=== PATIENT | female | born 1980 | race Caucasian/White ===

== ENCOUNTER → 2018-06-08 11:19 | Outpatient (CLI) | payer OTHER, SELFPAY ==
[2018-06-12 09:50] LABS: HPV Reflexed? NOT INDICATED
== END ==
PROVIDERS: Visit Provider Obstetrics & Gynecology
DX: Z12.4 Encounter for screening for malignant neoplasm of cervix (principal)
CPT/HCPCS: 88175; G0145

== ENCOUNTER → 2018-06-11 14:24 | Outpatient (CLI) | payer OTHER, SELFPAY ==
--- NOTE | 2018-06-11 14:26 | BI_ITS ---
MAMMOGRAPHY - BILATERAL SCREENING REASON FOR EXAM: Female, 38 years old. Routine annual screening examination. PERTINENT HISTORY: Aunt with breast cancer. TECHNIQUE: Digital bilateral breast corinne (3D mammographic acquisition) in the CC and MLO projections. 2-D mediolateral oblique (MLO) and craniocaudad (CC) views of both breasts were obtained. CAD: Full Field Digital Mammography with Computer Added Detection was performed. COMPARISON: None. Baseline examination. FINDINGS: Breast Composition: The breasts are heterogeneously dense, which may obscure small masses. There are no dominant masses or suspicious calcifications. No other significant abnormalities are identified. BI/SCREENING MAMM (CAD), BILAT IMPRESSION: Negative screening mammogram. Yearly followup mammogram recommended. (A) ASSESSMENT CATEGORY: BIRADS Category 1: Negative. A letter regarding these results will be sent to the patient by the facility within 30 days. Approximately 10% of breast cancers are not detected by mammography. A normal mammogram should not delay biopsy of a clinically suspicious abnormality. [id number] Electronically Signed: Remberto Quintana MD at 10:26 EDT Tel [phone], Service support ,
== END ==
PROVIDERS: Visit Provider Obstetrics & Gynecology
DX: Z12.31 Encounter for screening mammogram for malignant neoplasm of breast (principal)
CPT/HCPCS: 77063; 77067

== ENCOUNTER → 2018-08-14 09:01 | Outpatient (CLI) | payer OTHER, SELFPAY ==
[2018-08-14 10:28] LABS: Absolute Lymphocyte Count 0.79 X10^3/ul (0.83-4.51); Absolute Neutrophil Count 1.3 X10^3/uL (2.0-7.7); Basophil# 0.07 X10^3/uL; Basophil% 2.8 % (0-1); Eosinophil# 0.02 X10^3/uL; Eosinophils% 0.8 % (0-5); Hematocrit 39.8 % (37-47); Hemoglobin 13.6 g/dl (12.0-15.0); Lymphocyte # 0.79 X10^3/ul (4.0); Lymphocyte % 31.9 % (19-41); Mean Corp Hgb Conc 34.2 g/gl (32-36); Mean Corpuscular Hgb 32.4 pg (27.0-32.0); Mean Corpuscular Volume 94.8 fL (81-99); Mean Platelet Vol. 10.4 fl (6.2-12.0); Monocyte# 0.34 X10^3/uL; Monocyte% 13.7 % (0-10); Neutrophil # 1.26 X10^3/uL (2.7-7.7); Neutrophil % 50.8 % (47-70); Platelet Count 181 K/mm3 (150-450); RBC Distribution Width CV 13.1 % (11.6-14.6); RBC Distribution Width SD 44.2 fl (35.1-43.9); White Blood Count 2.5 K/mm3 (4.4-11.0)
[2018-08-14 10:29] LABS: POSITIVE COUNT NO; POSITIVE DIFFERENTIAL NO; POSITIVE MORPHOLOGY NO
[2018-08-14 10:57] LABS: Anion Gap 9 (5-15); BUN 11 mg/dL (7-18); BUN/Creat Ratio 12.9 RATIO (10-20); Calcium,Total 8.4 mg/dL (8.5-10.1); Chloride 108 mmol/L (98-107); Creatinine, Serum 0.85 mg/dL (0.55-1.02); EST Glomerular Filtration Rate 78 mL/min (>60); Est Glom Filt Rate - Afr Amer 95 mL/min (>60); Glucose 94 mg/dL (74-106); Potassium 4.3 mmol/L (3.5-5.1); Sodium Level 141 mmol/L (136-145)
== END ==
PROVIDERS: Family Provider Family Medicine; PCP Family Medicine; Visit Provider Family Medicine
DX: Z01.818 Encounter for other preprocedural examination (principal)
CPT/HCPCS: 36415; 80048; 85025

== ENCOUNTER 2018-08-28 05:58 | Day surgery (SDC) | payer OTHER, SELFPAY ==
--- NOTE | 2018-08-28 | BON_PTH ---
PATIENT: DAILY MEDINA [place] [facility] [place][id number] AGE/SX: 38/F ROOM: RE08/28/[address]: Dr. Ramiro Yanez DPM : 1980 BED: DIS: 08/28/2018 SPEC #: [id number] RECD: 08/28/18 14:58 STATUS: DIMITRIOS REAnna Marie #: [id number] [place]: 08/28/18 00:[address]: Ramiro Yanez DEPT: SURGICAL PATHOLOGY RECD BY: Kal Chery ENTERED: 08/28/18 15:01 SP TYPE: Bone OTHR DR: Dr. Tesfaye Carr MD Tissues: Bone of foot, NOS Procedures: Decalcification bone/plaque Surgery Specimen Level III HEADER OPERATION: First metatarsophalangeal joint cheilectomy/arthroplasty PRE-OP DIAGNOSIS: Osteoarthritis right first MPJ, hallus limitus/rigidus right great toe TISSUE SUBMITTED: Right first metatarsophalangeal joint MICROSCOPIC DIAGNOSIS Right first metatarsophalangeal joint: Pieces of bone with focal degenerative and reactive changes. UZIEL:bereket 09/02/18 MICROSCOPIC DESCRIPTION Slides are reviewed. GROSS DESCRIPTION Received in fixative is one container labeled with the patient's name and designated MP. The specimen consists of three irregular fragments of white-garza bone measuring 1 to 2.2 cm in greatest dimension. The largest fragment is sectioned and totally submitted along with the smaller fragments in two cassettes after decalcification. / AM:bereket 08/28/18 TC:5 CPT: 96059, 31310
[2018-08-28 06:18] VITALS: BP 105/82; PULSE 62; RESP 14; TEMP 37.4; O2SAT 99; BMI 26.6
[2018-08-28 06:21] LABS: Internal QC Validated? YES +Cl - CLEAR BKGD; Pregnancy, Urine Negative Negative
[2018-08-28] MEDS: Cefazolin 2 GM in 0.9% Normal Saline 100 ML IV (07:28)
--- NOTE | 2018-08-28 07:30 | RAD_ITS ---
STUDY: X-RAY RIGHT FOOT, RIGHT TOE REASON FOR EXAM: Female, 38 years old. Arthroplasty. TECHNIQUE: 2 coned-down intraoperative view(s) of the toe were obtained. COMPARISON: None. FINDINGS: 2 views were obtained intraoperatively. RAD/Toe(s) Min 2 Views IMPRESSION: 2 intraoperative views of the first metatarsophalangeal joint. Electronically Signed: Remberto Quintana MD at 12:26 EST Tel [phone], Service support ,
[2018-08-28] MEDS: Bupivacaine Mpf 0.5% 30 ML VIAL (08:23)
--- NOTE | 2018-08-28 08:35 | DCINST_ITS ---
Discharge Diet: Light diet - advance as tolerated Discharge Activity: May Not Drive Weight Bearing Status: No weight bearing - No weight on right foot Keep extremity elevated above heart level: Right Leg - Keep right foot elevated with pillows for at least 50 minutes of every hour Call your doctor if your incision/area has: Continuous Slow Oozing, Sudden Increased Bleeding, Foul Smelling Discharge Call your doctor if you observe: Fever of 101 or Higher, Coldness, Increased Pain, Shortness of breath, Chest pain, Increased palpitations (irregular heartbeat), Calf discomfort, Uncontrolled pain Cleanse incision/area with: Do not get Incision Wet, Keep Dressing Clean & Dry Allergies/Adverse Reactions: Allergies No Known Allergies Allergy (Verified 08/28/18 06:16) Medications to take at Discharge Hydrocodone/Acetaminophen [Vicodin 5-300 mg Tablet] 1 ea PO Q6H PRN PRN 3 Days #30 tab 08/28/18 Rivaroxaban [Xarelto] 10 mg PO DAILY #14 tab 08/28/18 The following prescriptions were given: Hydrocodone/Acetaminophen [Vicodin 5-300 mg Tablet] 1 ea PO Q6H PRN PRN 3 Days #30 tab PRN Reason: Pain Rivaroxaban [Xarelto] 10 mg PO DAILY #14 tab Primary Care Physician: Tesfaye Carr MD [Primary Care Provider] - Test Results: Test results from this visit will be discussed in further detail at your follow- up appointment, if applicable. Please Follow Up With: Ramiro Yanez DPM When: within 1 week, sooner if needed
--- NOTE | 2018-08-28 08:35 | PCM.OPRPT ---
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 Karon Huynh Type of Anesthesia:: General, Local Specimen's removed: Bone from the right 1st MTPJ sent to pathology Estimated Blood Loss (mL): 1mL Description of Procedure: Indications: This is a 38 year old female with painful 1st metatarsal phalagneal joint (MTPJ) due to osteoarthritis w/ hallux limitus/ridigus. Patient has pain and limited range of motion. Osteoarthritis was seen on xrays of the foot. This has been treated with extensive conservative/nonsurgical management, but symptoms persists and she continues to have pain and symptoms. She elected to undergo surgery. We discussed the procedure options, and we are planning to proceed with 1st MTPJ cheilectomy arthroplasty. We reviewed the rationale of this as well as the possible benefits, risks, potential complications goals and expectations of each. This was discussed with her in great detail. Typical post op recovery was reviewed with her. She expressed understanding and agreement. The consent forms were reviewed with her in detail, and she freely signed them. No guarantees were given. All of her questions were answered. Operative Procedure: The patient was brought back into the operating room and was placed on the operating room table in the supine position. She was carefully secured to the operating room table with a safety belt around her waist. A time out was performed and the patient was properly identified and the surgical plan was confirmed. The patient received 2 grams of IV Ancef for antibiotic prophylaxis. A well padded pneumatic tourniquet was applied around the right ankle. The patient did receive general anesthesia per the anesthesiologist. The skin was cleansed with 70% Isopropyl alcohol, and 10mL of 0.5% Bupivacaine plain was given as a 1st ray block on the right foot. The right foot was scrubbed, prepped, draped in the usual aseptic fashion. A timeout was performed and the patient was properly identified and the surgical plan was confirmed. The right foot was elevated for 3 minutes and the right ankle pneumatic tourniquet was inflated to 250mmHg. Attention was directed to the right 1st MTPJ. There as noted to be significant limited range of motion present, with grinding consistent with hallux rigidus and osteoarthritis. There was dorsal jamming present with crepitus consistent with osteoarthritis hallux limitus/rigidus. A linear longitudinal skin incision was made overlying the dorsal medial 1st MTPJ, medial to the Extensor Hallucis Longus tendon using a 15 scalpel blade. Careful dissection was completed down through the subcutaneous tissue layer, down to the 1st MTPJ capsule, which was incised with a 15 scalpel blade. The 1st MTPJ capsule was partially reflected exposing the dorsal, lateral, and medial aspect of the 1st metatarsal head and base of the hallux proximal phalanx. There were osteophytes around the dorsal 1st metatarsal head as well as the dorsal aspect of the base of the hallux proximal phalanx. The was a dorsal eminence present to the dorsal 1st metatarsal head. The cartilage on the dorsal half of the 1st metatarsal head was worn away and unhealthy. There was a large osteochondral lesion to the dorsal central 1st metatarsal head, and also smaller one to the plantar central aspect, there was noted to be diffuse global wearing away of cartilage present. There was an osteochondral defect central aspect of the base of the hallux proximal phalanx. There were significant adhesions of the sesamoid apparatus. The adhesions of the sesamoid apparatus were freed up using a McGlamry elevator. Using a powered sagittal saw the dorsal eminence and the dorsal 1st metatarsal head was resected - the dorsal osteochondral defect was resected in this process. This was sent to pathology for further evaluation. The osteophytes were resected from the 1st metatarsal head and from the base of the hallux proximal phalanx using a bone cutting rongeur - these were sent to pathology. Resection of the dorsal aspect of the 1st metatarsal head and osteophytes was confirmed using intra operative fluoroscopy, without the use of a imaging technician. The osteochondral lesion of the base of the hallux proximal phalanx as well as the plantar central 1st metatarsal were drilled subchondrally using a 0.045 inch Kwire. At this time the 1st MTPJ was put through range of motion and it was gliding normally and smoothly, with no impingement or crepitus present. There was no popping or catching present with range of motion. There was now 90 degrees of dorsiflexion of the hallux at the level of the 1st MTPJ, this was confirmed using intra operative fluoroscopy without a sterile supply technician. The remainder of the joint appeared healthy and viable. The site was flushed out with copious amounts of normal saline solution. The joint capsule was reapproximated in neutral position using 3-0 Vicryl, the subcutaneous tissue layer was reapproximated using 3-0 Vicryl, the skin was reapproximated using 4-0 Monocryl. Cavilon was painted to the sutured skin edges and steristrips were applied across the sutured skin incision. All vital structure, including all vital neurovascular structures were properly identified and protected as necessary throughout the procedure. The pneumatic tourniquet was deflated (total tourniquet time was 40 minutes), there was immediate return of vascular flow to the foot and all toes. CFT < 2 seconds to all toes, and had normal temperature gradient present with no evidence of ischemia. Hemostasis was achieved. An additional 10mL of 0.5% Bupivacaine plain was given as a local nerve block around the 1st ray of the right foot for post operative pain control. A dressing was applied which consisted of Betadine soaked adaptic, 4x4 gauze, Kerlix and alecia dressing to the right foot. The patient tolerated the above operative procedure well at the anesthesia well with no complications. The patient was transported to the recovery room with vital signs stable and in good condition. Post operative orders were placed. Post operative instructions were reviewed with patient today, as well as with her who was with her. No weightbearing right foot, keep right foot elevated for at least 50 minutes of every hour, keep dressing clean, dry and intact. Prescription for Vicodin 5mg/300mg was prescribed: 1-2 tabs PO q 6 hours PRN pain for pain control, as well as Xarelto 10mg PO once daily to help prevent a blood clot. She was dispensed a surgical shoe. Post operative xrays were obtained in the recovery room which confirmed 1st MTPJ cheilectomy arthroplasty. No post operative complications and otherwise no acute changes and stable xrays. Grafts/Implants Used: None - Complications None
[2018-08-28 08:36] VITALS: BP 105/82; BP 108/82; PULSE 67; RESP 16; TEMP 36.3; O2SAT 100
[2018-08-28 08:45] VITALS: BP 105/82; BP 112/77; PULSE 64; RESP 16; O2SAT 100
--- NOTE | 2018-08-28 08:50 | RAD_ITS ---
STUDY: X-RAY RIGHT FOOT, GREAT TOE REASON FOR EXAM: Female, 38 years old. The first metatarsophalangeal cheilectomy TECHNIQUE: 3 view(s) of the toe were obtained. COMPARISON: None. FINDINGS: Normal visualized metatarsus. There is mild arthrosis of the metatarsophalangeal (M.T.P.) joint. Normal interphalangeal joints. Normal phalanges and interphalangeal joints. Postoperative soft tissue changes. RAD/Toe(s) Min 2 Views IMPRESSION: Postoperative soft tissue changes. Electronically Signed: Remberto Quintana MD at 12:27 EST Tel [phone], Service support ,
[2018-08-28 09:00] VITALS: BP 105/82; BP 115/60; PULSE 60; RESP 16; O2SAT 99
[2018-08-28 09:12] VITALS: BP 105/82; BP 111/68; PULSE 56; RESP 16; TEMP 36.9; O2SAT 100
[2018-08-28 10:12] VITALS: BP 105/82; BP 97/57; PULSE 55; RESP 16; TEMP 36.4; O2SAT 99
== END 2018-08-28 10:14 | disposition home or self-care (01) ==
LOC: SDC 05:59 → AC 06:00
PROVIDERS: Anesthesiology; Family Provider Family Medicine; PCP Family Medicine; Referring Provider Podiatrist; Visit Provider Podiatrist
PROC: (CPT 28289; principal; 2018-08-28 07:15)
DX: M19.071 Primary osteoarthritis, right ankle and foot (principal); M20.21 Hallux rigidus, right foot; D72.819 Decreased white blood cell count, unspecified; Z86.711 Personal history of pulmonary embolism
CPT/HCPCS: 28289; 73660; 76000; 81025; 88304; 88311; J7120; J2405

== ENCOUNTER 2018-08-31 11:24 | Emergency (ER) | payer OTHER, SELFPAY ==
[2018-08-31 11:25] VITALS: PULSE 67; RESP 15; TEMP 36.8; O2SAT 98; BMI 26.6
--- NOTE | 2018-08-31 11:38 | EKG12_ITS ---
Test Reason : CP Blood Pressure : / mmHG Vent. Rate : 061 BPM Atrial Rate : 061 BPM P-R Int : 156 ms QRS Dur : 086 ms QT Int : 418 ms P-R-T Axes : 032 -07 033 degrees QTc Int : 420 ms Normal sinus rhythm Low voltage QRS (LIMB LEADS) Borderline ECG Confirmed by MAME ODOM, HONG ([id number]), online editor ENRIQUETA BLOOD ([id number]) on 09/02/2018 2:35:53 PM Referred By: GEOFFREY Confirmed By:HONG VILCHIS MD
--- NOTE | 2018-08-31 11:43 | RAD_ITS ---
STUDY: X-RAY CHEST REASON FOR EXAM: Female, 38 years old. Chest pain TECHNIQUE: Single AP portable view of the chest. COMPARISON: None. FINDINGS: The lungs are clear and expanded. There is no demonstrated pleural abnormality. Normal size heart. Normal mediastinum and brandy. Normal visualized pulmonary arteries. Normal visualized aortic arch and descending thoracic aorta. Normal visualized thoracic spine. Normal visualized ribs, clavicles, and shoulders. There is no demonstrated abnormality of the visualized soft tissue structures of the upper abdomen. RAD/Chest 1 View (Portable) IMPRESSION: Normal x-ray examination of the chest. Electronically Signed: London Haddad DO at 12:07 EST Tel , Service support ,
--- NOTE | 2018-08-31 12:06 | CT_ITS ---
STUDY: CT BRAIN WITHOUT CONTRAST REASON FOR EXAM: Female, 38 years old. Chest pain and heaviness. Headache x1 month. RADIATION DOSAGE (If Supplied By Facility): CTDIvol = ( 44.99 ) mGy, DLP = ( 745.49 ) mGycm TECHNIQUE: Transaxial CT imaging of the brain was performed without administration of intravenous contrast material. Individualized dose optimization techniques were used for this CT. COMPARISON: None. FINDINGS: Normal soft tissue structures. Normal calvarium. Normal size ventricles and extra-axial spaces for the patient's age. Normal white matter tracts of the cerebral hemispheres. Normal basal ganglia and thalami. Normal brainstem. Normal cerebellum. There is no intracranial hemorrhage. There are no findings of an acute ischemic infarction. Normal visualized paranasal sinuses. CT/Brain/Head without Contrast IMPRESSION: Normal unenhanced CT scan of the brain. Electronically Signed: London Haddad DO at 13:29 EST Tel , Service support ,
--- NOTE | 2018-08-31 12:06 | CT_ITS ---
STUDY: CTA CHEST REASON FOR EXAM: Female, 38 years old. Chest pain and heaviness. Status post surgery RADIATION DOSAGE (If Supplied By Facility): CTDIvol = ( 15.08 ) mGy, DLP = ( 450.21 ) mGycm TECHNIQUE: The examination was performed with the intravenous administration of 100 ml of Isovue 370 contrast material. Post-processing of the angiographic images was performed, with multiplanar reformation and 3D reconstruction. Individualized dose optimization techniques were used for this CT. COMPARISON: None. FINDINGS: Normal enhancement of the main pulmonary artery and right and left pulmonary arteries. Normal enhancement of the bilateral peripheral pulmonary arteries. There is no demonstrated pulmonary embolism. Normal thoracic aorta and visualized great vessels. There is no demonstrated aortic dissection. Normal heart and pericardium. Normal mediastinum. Normal hilar regions. Normal visualized trachea and bronchi. The lungs are well expanded. Normal pulmonary parenchyma. Normal pleura. Normal chest wall structures. Normal osseous structures. Normal visualized upper abdomen. CT/CTA Chest W/WO Contrast IMPRESSION: Normal CTA chest examination, without a demonstrated pulmonary embolism or arterial dissection. Electronically Signed: London Haddad DO at 13:43 EST Tel , Service support ,
[2018-08-31 12:11] LABS: Absolute Lymphocyte Count 1.05 X10^3/ul (0.83-4.51); Absolute Neutrophil Count 1.9 X10^3/uL (2.0-7.7); Basophil# 0.02 X10^3/uL; Basophil% 0.6 % (0-1); Eosinophil# 0.09 X10^3/uL; Eosinophils% 2.6 % (0-5); Hematocrit 38.4 % (37-47); Hemoglobin 12.9 g/dl (12.0-15.0); Lymphocyte # 1.05 X10^3/ul (4.0); Lymphocyte % 30.3 % (19-41); Mean Corp Hgb Conc 33.6 g/gl (32-36); Mean Corpuscular Hgb 31.5 pg (27.0-32.0); Mean Corpuscular Volume 93.7 fL (81-99); Monocyte# 0.45 X10^3/uL; Neutrophil # 1.86 X10^3/uL (2.7-7.7); Neutrophil % 53.5 % (47-70); Platelet Count 167 K/mm3 (150-450); RBC Distribution Width CV 12.7 % (11.6-14.6); RBC Distribution Width SD 43.5 fl (35.1-43.9); White Blood Count 3.5 K/mm3 (4.4-11.0)
[2018-08-31 12:15] LABS: POSITIVE COUNT NO; POSITIVE DIFFERENTIAL NO; POSITIVE MORPHOLOGY NO
[2018-08-31 12:18] LABS: International Normalized Ratio 1.2; Prothrombin Time (Protime)PT. 14.7 SECONDS (11.7-14.9)
[2018-08-31 12:25] LABS: Anion Gap 6 (5-15); BUN 12 mg/dL (7-18); BUN/Creat Ratio 15.5 RATIO (10-20); Calcium,Total 8.4 mg/dL (8.5-10.1); Chloride 107 mmol/L (98-107); Creatinine, Serum 0.77 mg/dL (0.55-1.02); EST Glomerular Filtration Rate 88 mL/min (>60); Est Glom Filt Rate - Afr Amer 106 mL/min (>60); Estimated Creatinine Clearance 97.97 ml/min; Glucose 90 mg/dL (74-106); Potassium 4.1 mmol/L (3.5-5.1); Sodium Level 140 mmol/L (136-145)
[2018-08-31 12:51] LABS: Pregnancy, Serum, hCG Quali. NEGATIVE Negative (0-9 Nonpreg)
[2018-08-31 12:58] VITALS: PULSE 63; RESP 20; O2SAT 99
[2018-08-31 13:30] VITALS: BP 119/73; PULSE 69; RESP 16; O2SAT 100
[2018-08-31 14:59] VITALS: BP 101/67; PULSE 81; RESP 14; O2SAT 100
--- NOTE | 2018-08-31 15:02 | ED.DCSUM_ITS ---
- ER Visit Summary Date of Service: 08/31/18 Chief Complaint: Chest pain History of Present Illness: The patient is a 38 F with chest pain that started 4 days ago. It feels like something is sitting on her chest. The pain is anterior. Worse with breathing. She has a history of PE, provoked after surgery. She has been off of blood thinners but was started after a recent foot surgery, also on Friday. She has been taking Xarelto for 14 days. No history of cardiac disease or aortic disease. Patient is also complaining of a headache. This has been going on for about a month and a half, a month prior to taking Xarelto. Her physician is aware. No history of aneurysms. No trauma. Physical Examination: Afebrile and vital signs unremarkable. Head and neck atraumatic. Heart regular. Lungs clear. Abdomen soft. Right foot postop dressing. Calf soft and supple. No focal or lateralizing neurologic abnormalities. Test Results: White count 3.5. BMP normal. test negative. Troponin normal. EKG showed sinus rhythm at a rate of 61. No sign of acute ischemia or infarction pattern. CT brain showed no acute pathology. CT chest was normal. Emergency Department Course and Treatment: Patient resents with chest pain and history of PE. Her workup here was negative for PE. She also reports ongoing headache. She had headaches before starting Xarelto. No trauma or focal neurologic symptoms. No fevers. Her scan was normal. No sign of sepsis. Patient will be referred for outpatient follow-up. Return for any new or worsening issues. Treatment Plan: As above Disposition: Discharge Impression: 1. Headache 2. Chest pain unclear etiology This note was generated with [employer] dictation software. It may contain incorrect words, spelling, and punctuation that were not noted in review of the chart prior to signing ED Disposition - Plan for ED Patient: Chief Complaint: Chest Pain Referrals: Tesfaye Carr MD [Primary Care Provider] -
--- NOTE | 2018-08-31 15:03 | ED.DEP ---
ED Disposition - Plan for ED Patient: Chief Complaint: Chest Pain Instructions: ED Chest Pain Atypical Unkn Cause Referrals: Tesfaye Carr MD [Primary Care Provider] - Vik Evans MD [STAFF PHYSICIAN] - As Needed
== END 2018-08-31 15:09 | disposition home or self-care (01) ==
LOC: ED 12:14
PROVIDERS: Emergency Provider Emergency Medicine; Family Provider Family Medicine; PCP Family Medicine
DX: R51 Headache (principal); R07.9 Chest pain, unspecified; Z86.711 Personal history of pulmonary embolism; Z79.02 Long term (current) use of antithrombotics/antiplatelets; Z79.891 Long term (current) use of opiate analgesic
CPT/HCPCS: 70450; 71045; 71275; 80048; 84484; 84703; 85025; 85610; 93005; 99284; Q9967; A4216

== ENCOUNTER → 2020-11-28 10:50 | Outpatient (CLI) | payer OTHER, SELFPAY ==
[2020-09-12 10:27] VITALS: BMI 26.2
[2020-11-28 12:24] LABS: D-Dimer Quantitative (DVT/PE) 0.33 FEU/ug/m (0.27-0.49)
== END ==
PROVIDERS: PCP Family Medicine; Referring Provider Registered Nurse; Visit Provider Registered Nurse
DX: R07.89 Other chest pain (principal)
CPT/HCPCS: 36415; 85379

== ENCOUNTER → 2021-07-24 | Outpatient (CLI) | payer OTHER, SELFPAY | END | disposition home or self-care (01) | PROVIDERS: PCP Family Medicine; Visit Provider Family Medicine | DX: J11.1 Influenza due to unidentified influenza virus with other respiratory manifestations (principal) | CPT/HCPCS: 87635; U0005; U0003 ==

== ENCOUNTER 2021-09-12 08:18 | Outpatient (CLI) | payer OTHER, SELFPAY ==
--- NOTE | 2021-09-12 08:21 | BI_ITS ---
MAMMOGRAPHY - BILATERAL SCREENING REASON FOR EXAM: Female, 41 years old. Routine annual screening examination. PERTINENT HISTORY: Aunts with breast cancer. TECHNIQUE: Digital bilateral breast padma (3D mammographic acquisition) in the CC and MLO projections. 2-D mediolateral oblique (MLO) and craniocaudad (CC) views of both breasts were obtained. CAD: Full Field Digital Mammography with Computer Added Detection was performed. COMPARISON: Comparison is made with prior study dated 06/11/2018. FINDINGS: Breast Composition: The breasts are extremely dense, which lowers the sensitivity of mammography. There are no dominant masses or suspicious calcifications. No other significant abnormalities are identified. There has been no significant change since the prior study. BI/SCRN MAMM (CAD)W/PADMA BILAT IMPRESSION: Stable bilateral screening mammogram. Yearly follow-up mammogram recommended. (A) ASSESSMENT CATEGORY: BIRADS Category 1: Negative. A letter regarding these results will be sent to the patient by the facility within 30 days. Approximately 10% of breast cancers are not detected by mammography. A normal mammogram should not delay biopsy of a clinically suspicious abnormality. [id number] Electronically Signed: Remberto Quintana MD at 9:06 EST , Service support ,
== END 2021-09-12 23:59 | disposition short-term general hospital (02) ==
LOC: OPBI 08:19
PROVIDERS: PCP Family Medicine; Referring Provider Student in an Organized Health Care Education/Training Program; Visit Provider Student in an Organized Health Care Education/Training Program
DX: Z12.31 Encounter for screening mammogram for malignant neoplasm of breast (principal)
CPT/HCPCS: 77063; 77067

== ENCOUNTER 2021-11-22 09:49 | Outpatient (CLI) | payer OTHER, SELFPAY ==
[2021-11-28 16:40] LABS: HPV APTIMA, High Risk Negative (Negative)
== END 2021-11-22 23:59 | disposition home or self-care (01) ==
PROVIDERS: PCP Family Medicine; Visit Provider Student in an Organized Health Care Education/Training Program
DX: Z12.4 Encounter for screening for malignant neoplasm of cervix (principal)
CPT/HCPCS: 87624; 88175; G0145

== ENCOUNTER → 2022-07-17 | Outpatient (CLI) | payer OTHER, SELFPAY ==
[2022-07-17 12:29] LABS: Absolute Lymphocyte Count 1.21 X10^3/uL (0.83-4.51); Absolute Neutrophil Count 2.2 X10^3/uL (2.0-7.7); Basophil# 0.04 X10^3/uL; Eosinophil# 0.07 X10^3/uL; Eosinophils% 1.8 % (0-5); Hematocrit 43.1 % (37-47); Hemoglobin 14.3 g/dL (12.0-15.0); Lymphocyte # 1.21 X10^3/ul (0.83-4.51); Lymphocyte % 30.3 % (19-41); Mean Corp Hgb Conc 33.2 g/dL (32-36); Mean Corpuscular Hgb 32.1 pg (27.0-32.0); Mean Corpuscular Volume 96.6 fL (81-99); Mean Platelet Vol. 10.2 fl (6.2-12.0); Monocyte# 0.45 X10^3/uL; Monocyte% 11.3 % (0-10); NRBC Flagged by Analyzer 0.5 % (0-5); Neutrophil # 2.21 X10^3/uL (2.7-7.7); Neutrophil % 55.3 % (47-70); Platelet Count 218 K/mm3 (150-450); RBC Distribution Width CV 12.2 % (11.6-14.6); Red Blood Count 4.46 M/mm3 (4.2-5.4)
[2022-07-17 13:20] LABS: Anion Gap 4 (5-15); BUN 9 mg/dL (7-18); BUN/Creat Ratio 10.5 RATIO (10-20); Calcium,Total 9.1 mg/dL (8.5-10.1); Chloride 106 mmol/L (98-107); Creatinine, Serum 0.85 mg/dL (0.55-1.02); EST Glomerular Filtration Rate 77 mL/min (>60); Est Glom Filt Rate - Afr Amer 93 mL/min (>60); Glucose 107 mg/dL (74-106); Potassium 4.6 mmol/L (3.5-5.1); Sodium Level 140 mmol/L (136-145)
== END | disposition home or self-care (01) ==
LOC: MTLAB 10:07
PROVIDERS: PCP Family Medicine; Referring Provider Family Medicine; Visit Provider Family Medicine
DX: R42 Dizziness and giddiness (principal)
CPT/HCPCS: 36415; 80048; 85025